=== PATIENT | female | born 1980 | race Caucasian/White ===

== ENCOUNTER 2017-11-19 17:40 | Emergency (ER) | payer MEDICARE, MEDICAID ==
[2017-11-19 19:06] VITALS: BP 104/65
--- NOTE | 2017-11-19 19:48 | EDM.PDOC ---
ED HPI GENERAL MEDICAL PROBLEM - General Chief Complaint: General Stated Complaint: WITHDRAWL FROM MEDS Time Seen by Provider: 11/19/17 17:50 Source of Information: Reports: Patient History Limitations: Reports: No Limitations - History of Present Illness INITIAL COMMENTS - FREE TEXT/NARRATIVE: 37-year-old female presents to the emergency room with complaints of opioid withdrawal. Patient is been on chronic pain medication for approximately 9 years. She recently relocated to [facility] from [place]. She was seen by Babs Anne [facility] primary care and referred to Dr. Zhang in [place] for medical management. She then had an appointment set up with Dr. Krys Lucas MD for pain management. Dr. Lucas discharged her from her clinic for not following her contract. She currently has no one managing her pain medications. She currently is taking oxycodone 10 mg 5 times a day prior to this she was on oxymorphone 25 mg 2 extended releases and 3 immediate releases a day she also takes amitriptyline Adderall clonazepam and Flexeril. She sentences follow-up with Dr. Zhang whom is currently trying to get her into pain management in [place]. She now presents to the emergency room as she feels that she is withdrawing from her medications. Onset: Gradual Duration: Day(s):, Getting Worse Location: Reports: Generalized Severity: Mild Improves with: Reports: Medication Worsens with: Reports: None Associated Symptoms: Reports: No Other Symptoms - Related Data Allergies Allergy/AdvReac Type Severity Reaction Status Date / Time amoxicillin [From Augmentin] Allergy Rash Verified 11/19/17 19:02 aspirin Allergy Difficulty Verified 11/19/17 19:02 Breathing bee venom protein (honey bee) Allergy Anaphylactic Verified 11/19/17 19:02 Shock clavulanic acid Allergy Rash Verified 11/19/17 19:02 [From Augmentin] ketorolac [From Toradol] Allergy Nausea Verified 11/19/17 19:02 latex Allergy Rash Verified 11/19/17 19:02 morphine [From MS Contin] Allergy Nausea Verified 11/19/17 19:02 Sulfa (Sulfonamide Allergy Cannot Verified 11/19/17 19:02 Antibiotics) Remember tramadol Allergy Cannot Verified 11/19/17 19:02 Remember Home Meds: Home Meds Amitriptyline [Elavil] 25 mg PO TID 11/19/17 [History] Cyclobenzaprine [Flexeril] 10 mg PO BID 11/19/17 [History] Topiramate 50 mg PO ACBREAKFAST 11/19/17 [History] Topiramate 100 mg PO BEDTIME 11/19/17 [History] predniSONE [Prednisone] 20 mg PO DAILY 11/19/17 [History] Past Medical History HEENT History: Reports: Sinusitis, Other (See Below) Other HEENT History: glasses Cardiovascular History: Reports: Hypertension, Other (See Below) 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 Respiratory History: Reports: Other (See Below) Other Respiratory History: 08/06 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 ED EXAM, GENERAL - Physical Exam Exam: See Below Exam Limited By: No Limitations General Appearance: Alert, No Apparent Distress, Anxious Head: Atraumatic Neck: Normal Inspection Respiratory/Chest: No Respiratory Distress Extremities: Normal Inspection Neurological: Alert, Oriented, Normal Cognition Psychiatric: Anxious Skin Exam: Warm Course - Vital Signs Last Recorded V/S: Last Vital Signs Temp 98.2 F 11/19/17 19:02 Pulse 81 11/19/17 19:02 Resp 20 11/19/17 19:02 BP 104/65 11/19/17 19:02 Pulse Ox 97 11/19/17 19:02 Departure - Departure Time of Disposition: 19:25 Disposition: DC/Tfer to Psych Hosp/Unit 65 Condition: Good Clinical Impression: Opioid dependence with current use - Discharge Information Instructions: Opioid Withdrawal Referrals: Srinivas Terrazas MD [Primary Care Provider] - Forms: ED Department Discharge Additional Instructions: 1. Patient to go directly to [facility] for direct admit for detox. 2. Dr. Reinsoo accepting for detox. - Assessment/Plan Assessment:: Opioid dependence Plan: Long discussion with the patient and her ex-spouse was discussed. She has chronic opioid dependence and has failed a pain management for breach of contract. Discussion with the patient today about inpatient detox followed by a detox program was discussed with patient in detail. She currently has no one to manage her medications due to her noncompliance and follow-up. She states that she is willing to go through any detox program and arrangements were made for go to [facility] for inpatient detox and was accepted by . Patient was instructed that she should proceed from the ER to [place] for inpatient admission for detox. She was discharged from the emergency room.
== END 2017-11-19 19:25 ==
LOC: KA.ED 17:40
DX: F11.23 Opioid dependence with withdrawal (principal); I10 Essential (primary) hypertension; E66.9 Obesity, unspecified; Z91.040 Latex allergy status; Z88.1 Allergy status to other antibiotic agents; Z88.8 Allergy status to other drugs, medicaments and biological substances; Z88.2 Allergy status to sulfonamides; Z91.030 Bee allergy status; Z79.899 Other long term (current) drug therapy
CPT/HCPCS: 99284

== ENCOUNTER 2021-06-08 13:20 | Emergency (ER) | payer MEDICARE, MEDICAID ==
--- NOTE | 2021-06-08 15:27 | EDM.PDOC ---
ED HPI GENERAL MEDICAL PROBLEM - General Chief Complaint: Respiratory Problem Stated Complaint: CHEST CONGESTION, COUGHING Time Seen by Provider: 06/08/21 13:20 Source of Information: Reports: Patient History Limitations: Reports: No Limitations - History of Present Illness INITIAL COMMENTS - FREE TEXT/NARRATIVE: Joanne is a 40-year-old female who accompanies her friend today both being seen for similar complaints of upper respiratory complaints. She is no some cough muscle aches sore throat and congestion over the last 5 to 6 days. They both work at the [employer] in [place]. Joanne has had a Covid vaccine. She is a smoker. She denies any nausea or vomiting no abdominal complaints no diarrhea. She reports she is cut back on her smoking due to her recent upper respiratory symptoms. She notes a little bit of discomfort in her ears or fullness. She does complain of some neck soreness. Onset: Gradual Onset Date: 06/10/21 Duration: Day(s):, Constant Location: Reports: Face, Neck, Chest Quality: Reports: Ache Severity: Mild Improves with: Reports: None Worsens with: Reports: None Context: Reports: Sick Contact Associated Symptoms: Reports: Cough. Denies: Chest Pain, Diaphoresis, Fever/Chills, Nausea/Vomiting, Shortness of Breath Treatments SET STAFF FITTER: Reports: Home Treatments, Other (see below) (The counter decongestants) Generalized Pain Score (Numeric/FACES): 5 - Related Data Allergies Allergy/AdvReac Type Severity Reaction Status Date / Time amoxicillin [From Augmentin] Allergy Rash Verified 06/08/21 13:43 aspirin Allergy Difficulty Verified 06/08/21 13:43 Breathing bee venom protein (honey bee) Allergy Anaphylactic Verified 06/08/21 13:43 Shock clavulanic acid Allergy Rash Verified 06/08/21 13:43 [From Augmentin] ketorolac [From Toradol] Allergy Nausea Verified 06/08/21 13:43 latex Allergy Rash Verified 06/08/21 13:43 morphine [From MS Contin] Allergy Nausea Verified 06/08/21 13:43 Sulfa (Sulfonamide Allergy Cannot Verified 06/08/21 13:43 Antibiotics) Remember tramadol Allergy Cannot Verified 06/08/21 13:43 Remember Home Meds: Home Meds Amitriptyline [Elavil] 25 mg PO TID 11/19/17 [History] Cyclobenzaprine [Flexeril] 10 mg PO BID 11/19/17 [History] Topiramate 100 mg PO BEDTIME 11/19/17 [History] Past Medical History HEENT History: Reports: Sinusitis, Other (See Below) Other HEENT History: glasses Cardiovascular History: Reports: Hypertension, Other (See Below) 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 Respiratory History: Reports: Other (See Below) Other Respiratory History: 08/06 lung demetris not functioning due to PE's 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 Musculoskeletal History: Reports: Back Pain, Chronic, Other (See Below) Other Musculoskeletal History: deteriorating spine Neurological History: Reports: Migraines Psychiatric History: Reports: Anxiety, Panic Attack Endocrine/Metabolic History: Reports: Obesity/BMI 30+ - Past Surgical History Female Surgical History: Reports: Hysterectomy Social & Family History - Tobacco Use Tobacco Use Status *Q: Never Tobacco User - Caffeine Use Caffeine Use: Reports: Other Caffeine Use Comment: not evaluated ED ROS GENERAL - Review of Systems Review Of Systems: See Below Constitutional: Reports: Malaise HEENT: Reports: No Symptoms Respiratory: Reports: Cough. Denies: Shortness of Breath, Wheezing Cardiovascular: Denies: Chest Pain, Lightheadedness Endocrine: Reports: No Symptoms GI/Abdominal: Denies: Abdominal Pain, Nausea, Stool Incontinence, Vomiting : Reports: No Symptoms Musculoskeletal: Reports: No Symptoms Skin: Reports: No Symptoms Neurological: Reports: No Symptoms Psychiatric: Reports: No Symptoms Hematologic/Lymphatic: Reports: No Symptoms Immunologic: Reports: No Symptoms ED EXAM, GENERAL - Physical Exam Exam: See Below Exam Limited By: No Limitations General Appearance: Alert, WD/WN, No Apparent Distress Eye Exam: Bilateral Eye: EOMI, PERRL Ears: Normal External Exam, Normal Canal, Hearing Grossly Normal, Normal TMs Ear Exam: Bilateral Ear: TM normal Nose: Normal Inspection, Normal Mucosa, No Blood Throat/Mouth: Normal Inspection, Normal Oropharynx, Normal Voice, No Airway Compromise Head: Atraumatic, Normocephalic Neck: Tender Lateral. No: Lymphadenopathy (L), Lymphadenopathy (R) Respiratory/Chest: No Respiratory Distress, Lungs Clear, Normal Breath Sounds, No Accessory Muscle Use, Chest Non-Tender Cardiovascular: Normal Peripheral Pulses, Regular Rate, Rhythm, No Edema GI/Abdominal: Soft Back Exam: Normal Inspection Extremities: Normal Inspection Neurological: Alert, Oriented, No Motor/Sensory Deficits Psychiatric: Normal Affect, Normal Mood Skin Exam: Warm, Dry, Intact, Normal Color, No Rash Lymphatic: No Adenopathy Course - Vital Signs Last Recorded V/S: Last Vital Signs Temp 97.6 F 06/08/21 13:46 Pulse 77 06/08/21 13:46 Resp 18 06/08/21 13:46 BP 141/98 H 06/08/21 13:46 Pulse Ox 100 06/08/21 13:46 - Orders/Labs/Meds Labs: Laboratory Tests 06/08/21 Range/Units 14:02 SARS CoV-2 RNA Rapid ELENO Negative (NEGATIVE) Departure - Departure Time of Disposition: 15:27 Disposition: Home, Self-Care 01 Clinical Impression: Upper respiratory infection, viral - Discharge Information Instructions: Upper Respiratory Infection, Adult, [id number] Referrals: PCP,Not In Area [Primary Care Provider] - Forms: ED Department Discharge Care Plan Goals: 1. Rest 2. Need to push and encourage plenty of fluids 3. Tylenol for any fever or chills 4. Ibuprofen for muscle aches and pain 5. [id number] decongestions for symptomatic relief sinus pressure, sore throat Sepsis Event Note (ED) - Evaluation Sepsis Screening Result: No Definite Risk - Focused Exam Vital Signs: Vital Signs Temp Pulse Resp BP Pulse Ox 06/08/21 13:46 97.6 F 77 18 141/98 H 100 - Assessment/Plan Assessment:: Upper respiratory infection, viral Plan: 1. Rest 2. Need to push and encourage plenty of fluids 3. Tylenol for any fever or chills 4. Ibuprofen for muscle aches and pain 5. [id number] decongestions for symptomatic relief sinus pressure, sore throat
== END 2021-06-08 15:45 | disposition home or self-care (01) ==
LOC: KA.ED 13:20
DX: J06.9 Acute upper respiratory infection, unspecified (principal); I10 Essential (primary) hypertension; F17.200 Nicotine dependence, unspecified, uncomplicated; E66.9 Obesity, unspecified; Z68.30 Body mass index [BMI] 30.0-30.9, adult; Z88.0 Allergy status to penicillin; Z88.6 Allergy status to analgesic agent; Z91.030 Bee allergy status; Z88.1 Allergy status to other antibiotic agents; Z88.5 Allergy status to narcotic agent; Z91.040 Latex allergy status; Z88.2 Allergy status to sulfonamides; Z79.899 Other long term (current) drug therapy; Z20.822 Contact with and (suspected) exposure to COVID-19
CPT/HCPCS: 99283; U0002